=== PATIENT | male | born 1950 | race Caucasian/White ===

== ENCOUNTER 2016-10-13 06:37 | Day surgery (SDC) | payer OTHER ==
[~2016-10-13] VITALS: Ht 177.8 cm; Wt 93.4 kg
[~2016-10-13 06:37] MED LIST: AVODART0.5 MG PO; DICLOFENAC SOD100 MG PO; FLEXERIL10 MG PO; FLOMAX0.4 MG PO; LIPITOR40 MG PO; MOBIC15 MG PO; NAPROSYN500 MG PO; NEURONTIN100 MG PO; NEXIUM 24HR20 MG PO; OMEGA-31000 M1 PO; PERCOCET 5/31 TABLET PO; REGLAN10 MG PO; SENOKOT,SENN1 TABLET PO; STOOL SOFTENER100 MG PO; ULTRAM50 MG PO; ZANAFLEX4 M1 PO; ZESTRIL20 MG PO
[2016-10-19] MEDS ORDERED: MAGNESIUM250 MG PO (14:51)
[2016-10-19] MEDS ORDERED: NAPROXEN500 MG PO (14:54)
[2016-10-19] MEDS ORDERED: CENTRUM MEN'S1 EACH PO (14:55)
== END 2016-10-13 08:47 | disposition home or self-care (01) ==
LOC: PAIN 06:37 → SDC 07:30 → PAIN 07:30
DX: M47.26 Other spondylosis with radiculopathy, lumbar region (principal); M48.06 Spinal stenosis, lumbar region; M46.1 Sacroiliitis, not elsewhere classified; G89.29 Other chronic pain; M54.9 Dorsalgia, unspecified; K21.9 Gastro-esophageal reflux disease without esophagitis; E78.5 Hyperlipidemia, unspecified; I10 Essential (primary) hypertension; M51.16 Intervertebral disc disorders with radiculopathy, lumbar region; R73.03 Prediabetes; Z86.14 Personal history of Methicillin resistant Staphylococcus aureus infection; F17.210 Nicotine dependence, cigarettes, uncomplicated; Z79.891 Long term (current) use of opiate analgesic
CPT/HCPCS: J1030; J2250; J3010; S0020

== ENCOUNTER 2016-10-20 06:40 | Day surgery (SDC) | payer OTHER ==
[~2016-10-20] VITALS: Ht 177.8 cm; Wt 93.4 kg
[~2016-10-20 06:40] MED LIST changes: +CENTRUM MEN'S1 EACH PO; +MAGNESIUM250 MG PO; +NAPROXEN500 MG PO
== END 2016-10-20 08:48 | disposition home or self-care (01) ==
LOC: PAIN 06:40 → SDC 07:30 → PAIN 08:48
DX: M51.16 Intervertebral disc disorders with radiculopathy, lumbar region (principal); M48.06 Spinal stenosis, lumbar region; G89.29 Other chronic pain; M54.5 Low back pain; E78.5 Hyperlipidemia, unspecified; F17.210 Nicotine dependence, cigarettes, uncomplicated; K21.9 Gastro-esophageal reflux disease without esophagitis; R73.09 Other abnormal glucose; Z86.14 Personal history of Methicillin resistant Staphylococcus aureus infection
CPT/HCPCS: J1030; J2250; J3010; S0020

== ENCOUNTER 2017-10-07 07:37 | Day surgery (SDC) | payer OTHER ==
[~2017-10-07] VITALS: Ht 180.3 cm; Wt 97.5 kg
== END 2017-10-07 09:35 | disposition home or self-care (01) ==
LOC: PAIN 07:37 → SDC 08:15 → PAIN 09:35
DX: M47.816 Spondylosis without myelopathy or radiculopathy, lumbar region (principal); M48.061 Spinal stenosis, lumbar region without neurogenic claudication; M51.16 Intervertebral disc disorders with radiculopathy, lumbar region; I10 Essential (primary) hypertension; E78.00 Pure hypercholesterolemia, unspecified; F17.200 Nicotine dependence, unspecified, uncomplicated; Z88.8 Allergy status to other drugs, medicaments and biological substances; Z91.040 Latex allergy status; Z79.891 Long term (current) use of opiate analgesic
CPT/HCPCS: J1030; J1885; J2250; S0020

== ENCOUNTER 2017-10-14 07:23 | Day surgery (SDC) | payer OTHER ==
[~2017-10-14] VITALS: Ht 180.3 cm; Wt 97.1 kg
== END 2017-10-14 09:15 | disposition home or self-care (01) ==
LOC: PAIN 07:23 → SDC 08:00 → PAIN 08:00
DX: M47.816 Spondylosis without myelopathy or radiculopathy, lumbar region (principal); M46.96 Unspecified inflammatory spondylopathy, lumbar region; M99.83 Other biomechanical lesions of lumbar region; M53.9 Dorsopathy, unspecified; Q76.49 Other congenital malformations of spine, not associated with scoliosis; G89.29 Other chronic pain; I10 Essential (primary) hypertension; E78.5 Hyperlipidemia, unspecified; K59.03 Drug induced constipation; T40.2X5A Adverse effect of other opioids, initial encounter; Z79.891 Long term (current) use of opiate analgesic; K21.9 Gastro-esophageal reflux disease without esophagitis; R73.03 Prediabetes; Z86.14 Personal history of Methicillin resistant Staphylococcus aureus infection; Z88.8 Allergy status to other drugs, medicaments and biological substances
CPT/HCPCS: J1030; J2250; S0020